=== PATIENT | male | born 1980 | race Caucasian/White ===

== ENCOUNTER 2017-10-30 14:13 | Inpatient (IN) | payer OTHER ==
[~2017-10-30] VITALS: Ht 160 cm; Wt 66.0 kg
[2017-10-30 17:53] LABS: BASOPHIL (%) 0.7 % (0-1); BASOPHIL COUNT 0.1 K/uL (0-0.1); EOSINOPHIL (%) 0 % (0-5); HEMATOCRIT 39.5 % (38.0-50.0); HEMOGLOBIN 13.2 G/DL (12.5-16.6); IMMATURE GRANULOCYTE (%) 1.8 % (0.0-0.7); LYMPHOCYTE (%) 11.4 % (15-42); LYMPHOCYTE COUNT 0.8 K/uL (1.0-2.8); MCH 34.1 PG (29.0-34.0); MCHC 33.4 G/DL (30.0-36.0); MCV 102.1 FL (86-99); MONOCYTE (%) 10.4 % (3-12); MONOCYTE COUNT 0.7 K/uL (0-0.8); NEUTROPHIL (%) 75.7 % (45-76); NEUTROPHIL COUNT 5.4 K/uL (1.8-6.4); PLATELET COUNT 94 K/uL (156-360); RBC DIS.WIDTH-CV 16.7 % (11.8-14.6); RBC DIS.WIDTH-SD 63.1 % (39-53); RED BLOOD COUNT 3.87 M/uL (4.00-5.50); WHITE BLOOD COUNT 7.1 K/uL (4.1-10.2)
[2017-10-30 18:01] LABS: ALBUMIN 3.5 g/dL (3.2-4.8); CHLORIDE 110 mEq/L (99-109); POTASSIUM 4.7 mEq/L (3.7-5.4); SODIUM 140 mEq/L (136-147)
[2017-10-30 18:03] LABS: GLUCOSE 134 mg/dL (70-99)
[2017-10-30 18:04] LABS: TOTAL PROTEIN 5.7 g/dL (6.4-8.3)
[2017-10-30 18:05] LABS: TOTAL BILIRUBIN 0.3 mg/dL (0.0-1.0)
[2017-10-30 18:07] LABS: ALKALINE PHOSPHATASE 84 IU/L (3-129); CREATININE 4.1 mg/dL (0.6-1.3); GFR ESTIMATE (CALCULATED) 17 mL/min/ (58.99-99999)
[2017-10-30 18:08] LABS: UREA NITROGEN (BUN) 64 mg/dL (9-23)
[2017-10-30 18:09] LABS: AST (GOT) 18 IU/L (2-34)
[2017-10-30 18:10] LABS: ALT (GPT) 12 IU/L (3-49)
[2017-10-30] MEDS ORDERED: PROGRAF0.5 MG PO ×2 (19:48→19:49)
[2017-10-30] MEDS ORDERED: ERGOCALCIF50000 UNIT PO (19:50)
[2017-10-30] MEDS ORDERED: FERROUS SULFAT325 MG PO (19:52)
[2017-10-30] MEDS ORDERED: LORATADINE10 M2 PO (19:53)
[2017-10-30] MEDS ORDERED: OMEPRAZOLE40 M1 PO (19:54)
[2017-10-30] MEDS ORDERED: ONE DAILY1 EAC3 PO (19:56)
[2017-10-30] MEDS ORDERED: [UNRECOGNIZED DRUG - OTHER] TP (20:00)
[2017-10-30 20:02] LABS: APPEARANCE CLEAR ((CLEAR)); BILIRUBIN NEGATIVE; BLOOD NEGATIVE; COLOR YELLOW ((YELLOW)); GLUCOSE (STRIP) NEGATIVE; KETONES NEGATIVE; LEUKOCYTES NEGATIVE; NITRITE NEGATIVE; PROTEIN (STRIP) >=500; SPECIFIC GRAVITY 1.011 (1.000-1.030); UROBILINOGEN 0.2 MG/DL (0.2-1.0)
[2017-10-30] MEDS ORDERED: MILLIPRED5 MG PO (20:02)
[2017-10-30 20:08] LABS: BACTERIA RARE /HPF; EPITHELIAL CELLS NONE SEEN /HPF; MUCUS NONE SEEN /LPF; UCUL ADDED? NO; WHITE BLOOD CELLS 0-5 /HPF (0-5)
[2017-10-30] MEDS ORDERED: PREDNISONE10 MG PO (20:16)
[2017-10-30] MEDS ORDERED: NABI650T PO (21:28)
[2017-10-30] MEDS ORDERED: FLORINEF ACETA0.1 MG PO (21:30)
[2017-10-30] MEDS ORDERED: ALLERGY RELIE15.8 ML BOTH NARES (21:31)
[2017-10-30] MEDS ORDERED: KETOCONAZOLE120 ML TP (21:33)
[2017-10-30] MEDS ORDERED: SYNTHROID50 MCG PO (21:35)
[2017-10-30] MEDS ORDERED: SYNTHROID75 MCG PO (21:36)
[2017-10-30] MEDS ORDERED: CLARITIN10 M3 PO (21:37)
[2017-10-30] MEDS ORDERED: TYLENOL EXTRA500 MG PO (21:40)
[2017-10-30] MEDS ORDERED: ZOVIRAX200 MG PO (21:41)
[2017-10-30] MEDS ORDERED: CALCITRIOL0.25 MCG PO (21:42)
[2017-10-30] MEDS ORDERED: CARAFATE100 MG/ML PO (21:43)
[2017-10-30] MEDS ORDERED: PEPCID20 MG PO (21:44)
[2017-10-30 22:05] VITALS: BP 168/86
[2017-10-31] VITALS (7 sets, daily range): BP systolic 133–142; BP diastolic 81–98
[2017-10-31 05:53] LABS: HEMATOCRIT 38.8 % (38.0-50.0); HEMOGLOBIN 12.9 G/DL (12.5-16.6); MCH 34.4 PG (29.0-34.0); MCHC 33.2 G/DL (30.0-36.0); MCV 103.5 FL (86-99); PLATELET COUNT 79 K/uL (156-360); RBC DIS.WIDTH-CV 16.7 % (11.8-14.6); RBC DIS.WIDTH-SD 64.2 % (39-53); RED BLOOD COUNT 3.75 M/uL (4.00-5.50); WHITE BLOOD COUNT 4.5 K/uL (4.1-10.2)
[2017-10-31 06:28] LABS: CHLORIDE 112 MEQ/L (99-109); CREATININE 3.8 MG/DL (0.6-1.3); GFR ESTIMATE (CALCULATED) 19 mL/min/ (58.99-99999); POTASSIUM 4.5 MEQ/L (3.7-5.4); SODIUM 143 MEQ/L (136-147); UREA NITROGEN (BUN) 52 mg/dL (9-23)
[2017-10-31 06:39] LABS: GLUCOSE 82 mg/dL (70-99)
[2017-11-01 04:42] VITALS: BP 154/98
[2017-11-01 07:26] VITALS: BP 135/88
[2017-11-01 09:15] LABS: HEMATOCRIT 37.5 % (38.0-50.0); HEMOGLOBIN 12.2 G/DL (12.5-16.6); MCH 33.4 PG (29.0-34.0); MCHC 32.5 G/DL (30.0-36.0); MCV 102.7 FL (86-99); PLATELET COUNT 80 K/uL (156-360); RBC DIS.WIDTH-CV 16.3 % (11.8-14.6); RBC DIS.WIDTH-SD 63.1 % (39-53); RED BLOOD COUNT 3.65 M/uL (4.00-5.50); WHITE BLOOD COUNT 3.2 K/uL (4.1-10.2)
[2017-11-01 09:37] LABS: CHLORIDE 116 MEQ/L (99-109); CREATININE 3.6 MG/DL (0.6-1.3); GFR ESTIMATE (CALCULATED) 20 mL/min/ (58.99-99999); GLUCOSE 96 mg/dL (70-99); POTASSIUM 4.6 MEQ/L (3.7-5.4); SODIUM 145 MEQ/L (136-147); UREA NITROGEN (BUN) 46 mg/dL (9-23)
[2017-11-01 12:07] VITALS: BP 139/106
[2017-11-01 15:58] VITALS: BP 134/97
[2017-11-01 19:44] VITALS: BP 157/107
[2017-11-01 23:19] VITALS: BP 170/115
[2017-11-02 00:38] VITALS: BP 179/108
[2017-11-02 03:41] VITALS: BP 141/92
[2017-11-02 06:13] LABS: CHLORIDE 116 MEQ/L (99-109); CREATININE 3.2 MG/DL (0.6-1.3); GFR ESTIMATE (CALCULATED) 23 mL/min/ (58.99-99999); GLUCOSE 131 mg/dL (70-99); POTASSIUM 4.6 MEQ/L (3.7-5.4); SODIUM 145 MEQ/L (136-147); UREA NITROGEN (BUN) 46 mg/dL (9-23); URIC ACID 9.2 mg/dL (3.1-9.2)
[2017-11-02 07:51] VITALS: BP 161/110
[2017-11-02 12:31] VITALS: BP 122/78
[2017-11-02 16:26] VITALS: BP 142/82
[2017-11-02 19:37] VITALS: BP 149/100
[2017-11-03 00:17] VITALS: BP 128/79
[2017-11-03 04:20] VITALS: BP 138/91
[2017-11-03 06:39] LABS: HEMATOCRIT 35.3 % (38.0-50.0); HEMOGLOBIN 11.8 G/DL (12.5-16.6); MCH 34.2 PG (29.0-34.0); MCHC 33.4 G/DL (30.0-36.0); MCV 102.3 FL (86-99); PLATELET COUNT 81 K/uL (156-360); RBC DIS.WIDTH-CV 15.9 % (11.8-14.6); RED BLOOD COUNT 3.45 M/uL (4.00-5.50); WHITE BLOOD COUNT 4.5 K/uL (4.1-10.2)
[2017-11-03 07:15] LABS: CHLORIDE 117 MEQ/L (99-109); CREATININE 3.2 MG/DL (0.6-1.3); GFR ESTIMATE (CALCULATED) 23 mL/min/ (58.99-99999); SODIUM 146 MEQ/L (136-147); UREA NITROGEN (BUN) 49 mg/dL (9-23)
[2017-11-03 07:16] LABS: GLUCOSE 93 mg/dL (70-99)
[2017-11-03 07:42] VITALS: BP 150/100
[2017-11-03] MEDS ORDERED: CEFDINIR300 MG PO (12:01)
[2017-11-03] MEDS ORDERED: LABETALOL HCL100 MG PO (12:01)
[2017-11-03] MEDS ORDERED: OSELTAMIVIR PHO30 MG PO (12:01)
== END 2017-11-03 14:55 | disposition home or self-care (01) | DRG 194 ==
LOC: EME 14:13 → EDOF 20:27 → 5SOUTH 20:27 → ENRESERV 20:28 → 5SOUTH 21:42 → ENPENDDIS 11-03 → 5SOUTH 11-03 14:55
PROVIDERS: Hospitalist; Physician Assistant
DX: J10.00 Influenza due to other identified influenza virus with unspecified type of pneumonia (principal); N17.9 Acute kidney failure, unspecified; D69.6 Thrombocytopenia, unspecified; E03.9 Hypothyroidism, unspecified; M10.9 Gout, unspecified; K21.9 Gastro-esophageal reflux disease without esophagitis; K52.9 Noninfective gastroenteritis and colitis, unspecified; M81.0 Age-related osteoporosis without current pathological fracture; F79 Unspecified intellectual disabilities; Q90.9 Down syndrome, unspecified; Z90.5 Acquired absence of kidney; Z82.62 Family history of osteoporosis; Z79.899 Other long term (current) drug therapy
CPT/HCPCS: 71045; 76776; 80048; 80053; 80197 90; 81003; 82948; 83605; 84550; 85025; 85027; 87040; 87449; 92526 GN; 92610 GN; 99281; 99285; C9113; J0360; J0456; J0696; J1200; J2405; J2930; J7030; J7507; J7512; S0028